=== PATIENT | female | born 1975 | race Caucasian/White ===

== ENCOUNTER → 2020-11-27 13:47 | Outpatient (BNVA) | payer BC, SELFPAY | PROVIDERS: Family Provider Internal Medicine; PCP Physician Assistant; Visit Provider Specialist | DX: G56.03 Carpal tunnel syndrome, bilateral upper limbs (principal) | CPT/HCPCS: 95910 ==

== ENCOUNTER 2021-07-30 13:48 | Outpatient (CLI) | payer BC, SELFPAY ==
--- NOTE | 2021-07-30 13:58 | CT_ITS ---
WS: [id number] CT ABDOMEN AND PELVIS WITH CONTRAST HISTORY: ACUTE RLQ PAIN TECHNIQUE: Imaging performed of the abdomen and pelvis with IV contrast. Single phase imaging of the abdomen. Coronal and sagittal reformats are submitted. All CT scans at [facility] use at [facility] one of these dose optimization techniques: automated exposure control; mA and/or kV adjustment per patient size (includes targeted exams where dose is matched to clinical indication); or iterative re construction. IV CONTRAST: Omnipaque 300; 95 mL IV. Oral contrast: No DLP: 1906.4 mGy.cm COMPARISON: None available. Lower thorax: Lung bases are clear. Heart is normal size. No hiatal hernia. Liver/biliary system: Normal size with no intrahepatic dilatation. Gallbladder: Normal. No gallstones or wall thickening. No pericholecystic fluid. Pancreas: Normal size pancreas and pancreatic duct. No adjacent inflammation. Spleen: Normal size spleen. No mass or infarct. Adrenal glands: Normal. Right kidney: Normal. Left kidney: Normal. Aorta: Normal. Lymphadenopathy: None. Free fluid: None. GI tract: Normal appendix. No GI tract obstruction. No mucosal thickening or inflammation. Abdominal wall: Unremarkable abdominal wall. No hernia. Pelvis: No free fluid. Uterus is normal size and anteverted. IUD device along the endometrial canal. There is a lobulated cyst associated with the LEFT ovary measuring 2.3 x 4.2 cm. This is either a sin gle cyst with septation or 2 adjacent cysts. Bones: Unremarkable. CT/CT abdomen pelvis w con* [id number] IMPRESSION: 1. Normal appendix. No appendicitis. 2. No renal obstruction or calcification. 3. LEFT ovarian cyst measures 2.3 x 4.2 cm.
[2021-07-30] MEDS: iohexol 300 mg/mL 100 mL Btl IV (14:28)
== END 2021-07-30 13:49 | disposition home or self-care (01) ==
LOC: RAD 13:53
PROVIDERS: PCP Physician Assistant; Visit Provider Physician Assistant
DX: R10.31 Right lower quadrant pain (principal); N83.202 Unspecified ovarian cyst, left side
CPT/HCPCS: 74177

== ENCOUNTER → 2022-10-16 11:00 | Outpatient (BNVA) | payer BC, SELFPAY | PROVIDERS: PCP Physician Assistant; Visit Provider Obstetrics & Gynecology | DX: Z01.419 Encounter for gynecological examination (general) (routine) without abnormal findings (principal) | CPT/HCPCS: 87624 ==

== ENCOUNTER 2022-10-28 09:46 | Outpatient (CLI) | payer BC, SELFPAY ==
--- NOTE | 2022-10-28 09:56 | MM_ITS ---
WS: [id number] BILATERAL SCREENING DIGITAL TOMOSYNTHESIS MAMMOGRAM WITH CAD HISTORY: Z12.39 - Encounter for other screening for malignant neoplasm... COMPARISON: 04/15/2018 Bilateral CC and MLO views with tomosynthesis and synthetic mammography submitted. Computer aided det ection analyzed. Breast composition: The breasts are heterogeneously dense, which may obscure small masses. No suspici ous masses, microcalcifications or architectural distortion. Biopsy clip in the central lateral RIGHT breast. MM/[place] [id number] IMPRESSION: BI-RADS: 2-Benign FOLLOW UP: 1 Year Follow-up
== END 2022-10-28 09:47 | disposition home or self-care (01) ==
LOC: RAD 09:51
PROVIDERS: PCP Physician Assistant; Visit Provider Obstetrics & Gynecology
DX: Z12.31 Encounter for screening mammogram for malignant neoplasm of breast (principal)
CPT/HCPCS: 77063; 77067

== ENCOUNTER 2022-11-14 16:19 | Emergency (ER) | payer BC, SELFPAY ==
--- NOTE | 2022-11-14 16:26 | XRR_ITS ---
PROCEDURE INFORMATION: Exam: XR Chest Exam date and time: 11/14/2022 4:55 PM Age: 47 years old Clinical indication: Pain; On breathing; Additional info: Chest pain TECHNIQUE: Imaging protocol: Radiologic exam of the chest. Views: 1 view. COMPARISON: CT abdomen pelvis w con* [id number] 07/30/2021 2:26 PM FINDINGS: Lungs: Unremarkable. No consolidation. Pleural spaces: Unremarkable. No pleural effusion. No pneumothorax. Heart/Mediastinum: Several prominent subcentimeter short axis inguinal lymph nodes bilaterally. Bones/joints: Unremarkable. Gastrointestinal tract: Constipation. Organs: Hepatic steatosis. Spleen borderline enlarged 13 cm. IUD in the uterine cavity. Other findings: Left ovary septated 4.4 cm cyst without surrounding inflammation, likely follicular in nature. XR/XR chest 1V portable [id number] IMPRESSION: 1. Negative for acute inflammatory process in the abdomen or pelvis. 2. Hepatic steatosis. 3. Spleen borderline enlarged 13 cm. 4. Constipation. 5. IUD in the uterine cavity. 6. Left ovary septated 4.4 cm cyst without surrounding inflammation, likely follicular in nature. 7. Several prominent subcentimeter short axis inguinal lymph nodes bilaterally.
--- NOTE | 2022-11-14 16:26 | ECG_ITS ---
[facility] Test Date: 2022-11-14 Pat Name: Della Grady Department: Room: Gender: Female Office Services Specialist: : 1975 Requested By: Pascual Austin Order Number: [id number] Mahendra MD: Davion Magdaleno M.D. Measurements Intervals Kelliher Rate: 76 P: 48 NM: 156 QRS: -6 QRSD: 85 T: 13 QT: 389 QTc: 439 Interpretive Statements SINUS RHYTHM LOW QRS VOLTAGE IN PRECORDIAL LEADS [QRS DEFLECTION < 1.0 mV IN CHEST LEADS] POSSIBLE RIGHT VENTRICULAR CONDUCTION DELAY [RSR (QR) IN V1/V2] No previous ECG available for comparison Electronically Signed On 11-14-2022 22:08:25 CDT by Davion Magdaleno M.D. [id number]
[2022-11-14 16:28] VITALS: BP 137/86; PULSE 81; RESP 16; TEMP 36.5; O2SAT 98
--- NOTE | 2022-11-14 16:34 | W.ED.ABDPA2 ---
Documented by User: Pascual Sorto DO 11/19/22 07:57 HPI - Abdominal Pain General: Chief Complaint: Abdominal Pain Stated Complaint: Chest Pains, pain when breathing Time Seen by Provider: 11/14/22 16:24 Source: patient Mode of arrival: ambulatory History of Present Illness: 47-year-old female with right upper quadrant pain. She reports nausea. Patient has severe pain radiating to her back and around her right flank. She has had previous episodes which are far less intense. She denies hematochezia melena hematemesis coffee-ground emesis denies dysuria urgency or frequency or hematuria. Does still have her gallbladder intact. MD elicited complaint: abdominal pain Pertinent past history: none Onset (ago): hour(s) Pain Consistency: constant Location: Epigastric and RUQ Severity: severe Quality: cramping Radiation: R flank and back Exacerbating factors: eating Relieving factors: nothing Associated Symptoms: Reports nausea; Denies anorexia, belching, bloating, change in bowel habits, change in stool character, chills, coffee ground emesis, constipation, GI cramping, diarrhea, dyspepsia, dysuria, excessive flatus, fever(s), heartburn, hematochezia, hematuria, hematemesis, fecal incontinence, loose stools, melena, poor appetite, syncope and vomiting Review of Systems Const: Denies: fever(s), chills, fatigue or malaise ENMT: Denies: throat pain, ear or mastoid pain, nasal discharge or nasal congestion Card: Denies: chest pain, palpitations, irregular heart rhythm, edema or syncope Resp: Denies: dyspnea, productive cough or non-productive cough GI: Reports: abdominal pain and nausea; Denies: vomiting, hematemesis, coffee ground emesis, heartburn, diarrhea, constipation, bloating, GI cramping, belching, excessive flatus, fecal incontinence, change in bowel habits, change in stool character, hematochezia or melena : Denies: dysuria, urinary frequency, urinary urgency or hematuria Skin/Breast: Denies: rash or pruritus PFSH ED PFSH: Medical History Encounter for management of intrauterine contraceptive device (IUD) Family History Unknown Cancer maternal aunt; breast cancer, living Patient denies a family hx of ovarian, uterine, pancreatic, colon or thyroid cancers. Denies family history of Diabetes Hypertension Stroke Physical Exam Const: GENERAL APPEARANCE: cooperative and comfortable ORIENTATION/CONSCIOUSNESS: Yes awake, Yes oriented to person, Yes oriented to place and Yes oriented to time HENMT: COMMON NORMALS: normocephalic, atraumatic and hearing grossly normal bilaterally HEAD & SCALP: normocephalic and atraumatic Resp: COMMON NORMALS: normal respiratory effort, No retractions, No use of accessory muscles and clear to auscultation bilaterally AUSCULTATION: clear to auscultation bilaterally Cardio: COMMON NORMALS: regular rate, regular rhythm and No murmurs present (Cardio) RATE: regular rate RHYTHM: regular rhythm GI: COMMON NORMALS: No hepatosplenomegaly present PALPATION: Yes Tenderness to palpation present (GI) Details: RUQ, No Guarding due to palpation present (GI) and Yes No hepatosplenomegaly present Extremity: COMMON NORMALS: normal to inspection, capillary refill normal, no clubbing, cyanosis or edema, no calf tenderness and no pedal edema Neuro: SENSORIUM/ORIENTATION: Yes oriented to person, Yes oriented to place and Yes oriented to time Skin: COMMON NORMALS: no rashes or lesions noted GENERAL SKIN EXAM: no rashes or lesions noted Course Vital Signs: Vital signs: Vital Signs Temperature 97.7 F 11/14/22 16:28 Pulse Rate 71 11/14/22 22:01 Respiratory Rate 16 11/14/22 22:01 Blood Pressure 135/93 11/14/22 20:01 Pulse Oximetry 99 11/14/22 22:01 Oxygen Delivery Me thod Room Air 11/14/22 16:28 MDM - Abdominal Pain Medical Decision Making Biliary colic with elevation of liver enzymes elevated T. bili elevated gallbladder ultrasound shows dilation of the common bile duct. MRCP pending care signed out to Dr. Tucker at change of shift. See final notes for diagnosis and disposition. 47-year-old female checked out to me at shift change by the previous physician. She has right upper quadrant pain that is now essentially resolved. Her white blood cell count was 14. Hemoglobin 14. Bilirubin is 2. Mild elevations in her liver enzymes only gallbladder ultrasound showed common bile duct dilatation that was mild requiring MRCP. MRCP shows cholelithiasis with no biliary ductal dilatation or stone. With resolution in her pain she will be allowed home. We will make a case management referral to surgery as this is her second attack of similar symptoms she knows to return if return of pain or worsening symptoms. Lab Data 11/14/22 16:46 11/14/22 16:46 Labs/Radiology: Radiology Impressions Chest X-Ray 11/14/22 16:26 IMPRESSION: 1. Negative for acute inflammatory process in the abdomen or pelvis. 2. Hepatic steatosis. 3. Spleen borderline enlarged 13 cm. 4. Constipation. 5. IUD in the uterine cavity. 6. Left ovary septated 4.4 cm cyst without surrounding inflammation, likely follicular in nature. 7. Several prominent subcentimeter short axis inguinal lymph nodes bilaterally. Gallbladder Ultrasound 11/14/22 17:31 IMPRESSION: 1. Common bile duct dilatation to approximately 7 mm. Correlate with LFTs and, if clinically indicated, ERCP or MRCP. 2. Cholelithiasis without sonographic evidence of acute cholecystitis. Cholangiopancreatography MRI 11/14/22 19:28 IMPRESSION: 1. Cholelithiasis. No biliary ductal dilatation or stone is seen. 2. Mild hepatomegaly and hepatic steatosis. Laboratory Results WBC 14.1 10^3/uL (4.0-10.0) H 11/14/22 16:46 RBC 4.59 10^6/uL (4.1-5.3) 11/14/22 16:46 Hgb 14.0 g/dL (11.5-15.3) 11/14/22 16:46 Hct 41.5 % (37.0-47.0) 11/14/22 16:46 MCV 90.4 fl (81-99) 11/14/22 16:46 MCH 30.5 pg (28.0-34.0) 11/14/22 16:46 MCHC 33.7 g/dL (30.0-36.0) 11/14/22 16:46 RDW 12.6 % (12.1-15.1) 11/14/22 16:46 Plt Count 261 10^3/cmm (130-400) 11/14/22 16:46 MPV 9.8 fL (7.4-10.4) 11/14/22 16:46 Neut % (Auto) 80.4 % 11/14/22 16:46 Lymph % (Auto) 13.4 % 11/14/22 16:46 [place] % (Auto) 4.3 % 11/14/22 16:46 Eos % (Auto) 0.9 % 11/14/22 16:46 Baso % (Auto) 0.6 % 11/14/22 16:46 Neut # (Auto) 11.31 10^3/uL (1.8-7.7) H 11/14/22 16:46 Lymph # (Auto) 1.9 10^3/uL (0.8-4.8) 11/14/22 16:46 [place] # (Auto) 0.6 10^3/uL (0.2-0.9) 11/14/22 16:46 Eos # (Auto) 0.1 10^3/uL (0.0-0.8) 11/14/22 16:46 Baso # (Auto) 0.1 10^3/uL (0.0-0.1) 11/14/22 16:46 Nucleated RBC % (auto) 0 % 11/14/22 16:46 Nucleated RBCs # 0.0 /100WBC 11/14/22 16:46 Sodium 138 mmol/L (136-145) 11/14/22 16:46 Potassium 3.6 mmol/L (3.5-5.1) 11/14/22 16:46 Chloride 103 mmol/L (98-107) 11/14/22 16:46 Carbon Dioxide 24 mmol/L (22-29) 11/14/22 16:46 Anion Gap 14.6 (5-19) 11/14/22 16:46 BUN 11 mg/dL (6-20) 11/14/22 16:46 Creatinine 0.7 mg/dL (0.5-0.9) 11/14/22 16:46 GFR Calculation 90.5 mL/min (90-130) 11/14/22 16:46 Glucose 96 mg/dL (65-115) 11/14/22 16:46 Calculated Osmolality 285 mOsm/kg (285-295) 11/14/22 16:46 Calcium 9.1 mg/dL (8.5-10.5) 11/14/22 16:46 Total Bilirubin 2.2 mg/dL (0.15-1.2) H 11/14/22 16:46 AST 58 U/L (0-32) H 11/14/22 16:46 ALT 44 U/L (0-33) H 11/14/22 16:46 Alkaline Phosphatase 95 U/L (35-105) 11/14/22 16:46 Total Protein 7.5 g/dL (6.6-8.7) 11/14/22 16:46 Albumin 4.4 g/dL (3.5-5.2) 11/14/22 16:46 Globulin 3.1 g/dL (1.3-4.6) 11/14/22 16:46 Lipase 25 U/L (13-60) 11/14/22 16:46 Urine Color Yellow (Yellow) 11/14/22 16:46 Urine Appearance Clear (CLEAR) 11/14/22 16:46 Urine pH 7 (5-7) 11/14/22 16:46 Ur Specific [place] 1.015 (1.005-1.030) 11/14/22 16:46 Urine Protein Neg (Negative) 11/14/22 16:46 Urine Glucose (UA) Norm (Normal) 11/14/22 16:46 Urine Ketones Negative (Negative) 11/14/22 16:46 Urine Blood Neg (Negative) 11/14/22 16:46 Urine Nitrate Negative (Negative) 11/14/22 16:46 Urine Bilirubin Neg (Negative) 11/14/22 16:46 Urine Urobilinogen Norm mg/dL (Negative) 11/14/22 16:46 Ur Leukocyte Esterase Negative (Negative) 11/14/22 16:46 Discharge Plan Discharge Patient Disposition: Home Clinical Impression: Biliary colic, Cholelithiasis Condition: Stable Prescriptions: New hydrocodone-acetaminophen 5-325 mg tablet 1 tab PO Q8H PRN (Reason: pain) Qty: 7 0RF ondansetron 4 mg film 4 mg PO DAILY PRN (Reason: nausea and vomiting) Qty: 10 0RF No Action levothyroxine 25 mcg tablet 25 mcg PO DAILY tirzepatide 5 mg/0.5 mL pen injector 5 mg SUBCUT .weekly Qty: 2 6RF Rx Instructions: ON THURSDAY famotidine 20 mg Tablet 20 mg PO DAILY PRN (Reason: Acid Reflux) Pepto-Bismol 262 mg/15 mL Suspension 524 mg PO Q1H PRN (Reason: Acid Reflux) Rx Instructions: do not exceed 8 doses in a 24 hour period Discharge Orders: Discharge ED (Routine); Ordered 11/14/22 Ordered By: Alphonso Tucker Referrals: Jd Prasad DO [Physician] - 4-7 days Emmie Rodas PA [Primary Care Provider] - Patient Instructions: Abdominal Pain (ED), Opioid Safety, Pain Management Activity Restrictions/Additional Instructions: Request from case management has been made to obtain an appointment with surgery for you for follow-up. Medications as directed for pain and nausea. Return for fever greater than 100, worsening right upper quadrant pain, vomiting liquids or medications, yellowing of the eyes, any other concerning symptoms. You should have your liver enzymes drawn early next week at your doctor's office to ensure that they are staying stable or returning to normal. Coding Level of Care Code ED Origination Specialist for Chg Fwd Documented by User: Alphonso Tucker DO 11/15/22 15:14 HPI - Abdominal Pain General: Chief Complaint: Abdominal Pain Stated Complaint: Chest Pains, pain when breathing Time Seen by Provider: 11/14/22 16:24 History of Present Illness: 47-year-old female with right upper quadrant pain. She reports nausea. Pain was severe. PFSH ED PFSH: Medical History Encounter for management of intrauterine contraceptive device (IUD) Family History Unknown Cancer maternal aunt; breast cancer, living Patient denies a family hx of ovarian, uterine, pancreatic, colon or thyroid cancers. Denies family history of Diabetes Hypertension Stroke Course Vital Signs: Vital signs: Vital Signs Temperature 97.7 F 11/14/22 16:28 Pulse Rate 71 11/14/22 22:01 Respiratory Rate 16 11/14/22 22:01 Blood Pressure 135/93 11/14/22 20:01 Pulse Oximetry 99 11/14/22 22:01 Oxygen Delivery Me thod Room Air 11/14/22 16:28 MDM - Abdominal Pain Medical Decision Making 47-year-old female checked out to me at shift change by the previous physician. She has right upper quadrant pain that is now essentially resolved. Her white blood cell count was 14. Hemoglobin 14. Bilirubin is 2. Mild elevations in her liver enzymes only gallbladder ultrasound showed common bile duct dilatation that was mild requiring MRCP. MRCP shows cholelithiasis with no biliary ductal dilatation or stone. With resolution in her pain she will be allowed home. We will make a case management referral to surgery as this is her second attack of similar symptoms she knows to return if return of pain or worsening symptoms. Lab Data 11/14/22 16:46 11/14/22 16:46 Labs/Radiology: Radiology Impressions Chest X-Ray 11/14/22 16:26 IMPRESSION: 1. Negative for acute inflammatory process in the abdomen or pelvis. 2. Hepatic steatosis. 3. Spleen borderline enlarged 13 cm. 4. Constipation. 5. IUD in the uterine cavity. 6. Left ovary septated 4.4 cm cyst without surrounding inflammation, likely follicular in nature. 7. Several prominent subcentimeter short axis inguinal lymph nodes bilaterally. Gallbladder Ultrasound 11/14/22 17:31 IMPRESSION: 1. Common bile duct dilatation to approximately 7 mm. Correlate with LFTs and, if clinically indicated, ERCP or MRCP. 2. Cholelithiasis without sonographic evidence of acute cholecystitis. Cholangiopancreatography MRI 11/14/22 19:28 IMPRESSION: 1. Cholelithiasis. No biliary ductal dilatation or stone is seen. 2. Mild hepatomegaly and hepatic steatosis. Laboratory Results WBC 14.1 10^3/uL (4.0-10.0) H 11/14/22 16:46 RBC 4.59 10^6/uL (4.1-5.3) 11/14/22 16:46 Hgb 14.0 g/dL (11.5-15.3) 11/14/22 16:46 Hct 41.5 % (37.0-47.0) 11/14/22 16:46 MCV 90.4 fl (81-99) 11/14/22 16:46 MCH 30.5 pg (28.0-34.0) 11/14/22 16:46 MCHC 33.7 g/dL (30.0-36.0) 11/14/22 16:46 RDW 12.6 % (12.1-15.1) 11/14/22 16:46 Plt Count 261 10^3/cmm (130-400) 11/14/22 16:46 MPV 9.8 fL (7.4-10.4) 11/14/22 16:46 Neut % (Auto) 80.4 % 11/14/22 16:46 Lymph % (Auto) 13.4 % 11/14/22 16:46 [place] % (Auto) 4.3 % 11/14/22 16:46 Eos % (Auto) 0.9 % 11/14/22 16:46 Baso % (Auto) 0.6 % 11/14/22 16:46 Neut # (Auto) 11.31 10^3/uL (1.8-7.7) H 11/14/22 16:46 Lymph # (Auto) 1.9 10^3/uL (0.8-4.8) 11/14/22 16:46 [place] # (Auto) 0.6 10^3/uL (0.2-0.9) 11/14/22 16:46 Eos # (Auto) 0.1 10^3/uL (0.0-0.8) 11/14/22 16:46 Baso # (Auto) 0.1 10^3/uL (0.0-0.1) 11/14/22 16:46 Nucleated RBC % (auto) 0 % 11/14/22 16:46 Nucleated RBCs # 0.0 /100WBC 11/14/22 16:46 Sodium 138 mmol/L (136-145) 11/14/22 16:46 Potassium 3.6 mmol/L (3.5-5.1) 11/14/22 16:46 Chloride 103 mmol/L (98-107) 11/14/22 16:46 Carbon Dioxide 24 mmol/L (22-29) 11/14/22 16:46 Anion Gap 14.6 (5-19) 11/14/22 16:46 BUN 11 mg/dL (6-20) 11/14/22 16:46 Creatinine 0.7 mg/dL (0.5-0.9) 11/14/22 16:46 GFR Calculation 90.5 mL/min (90-130) 11/14/22 16:46 Glucose 96 mg/dL (65-115) 11/14/22 16:46 Calculated Osmolality 285 mOsm/kg (285-295) 11/14/22 16:46 Calcium 9.1 mg/dL (8.5-10.5) 11/14/22 16:46 Total Bilirubin 2.2 mg/dL (0.15-1.2) H 11/14/22 16:46 AST 58 U/L (0-32) H 11/14/22 16:46 ALT 44 U/L (0-33) H 11/14/22 16:46 Alkaline Phosphatase 95 U/L (35-105) 11/14/22 16:46 Total Protein 7.5 g/dL (6.6-8.7) 11/14/22 16:46 Albumin 4.4 g/dL (3.5-5.2) 11/14/22 16:46 Globulin 3.1 g/dL (1.3-4.6) 11/14/22 16:46 Lipase 25 U/L (13-60) 11/14/22 16:46 Urine Color Yellow (Yellow) 11/14/22 16:46 Urine Appearance Clear (CLEAR) 11/14/22 16:46 Urine pH 7 (5-7) 11/14/22 16:46 Ur Specific [place] 1.015 (1.005-1.030) 11/14/22 16:46 Urine Protein Neg (Negative) 11/14/22 16:46 Urine Glucose (UA) Norm (Normal) 11/14/22 16:46 Urine Ketones Negative (Negative) 11/14/22 16:46 Urine Blood Neg (Negative) 11/14/22 16:46 Urine Nitrate Negative (Negative) 11/14/22 16:46 Urine Bilirubin Neg (Negative) 11/14/22 16:46 Urine Urobilinogen Norm mg/dL (Negative) 11/14/22 16:46 Ur Leukocyte Esterase Negative (Negative) 11/14/22 16:46 Discharge Plan Discharge Patient Disposition: Home Clinical Impression: Biliary colic, Cholelithiasis Condition: Stable Prescriptions: New hydrocodone-acetaminophen 5-325 mg tablet 1 tab PO Q8H PRN (Reason: pain) Qty: 7 0RF ondansetron 4 mg film 4 mg PO DAILY PRN (Reason: nausea and vomiting) Qty: 10 0RF No Action levothyroxine 25 mcg tablet 25 mcg PO DAILY tirzepatide 5 mg/0.5 mL pen injector 5 mg SUBCUT .weekly Qty: 2 6RF Rx Instructions: ON THURSDAY famotidine 20 mg Tablet 20 mg PO DAILY PRN (Reason: Acid Reflux) Pepto-Bismol 262 mg/15 mL Suspension 524 mg PO Q1H PRN (Reason: Acid Reflux) Rx Instructions: do not exceed 8 doses in a 24 hour period Discharge Orders: Discharge ED (Routine); Ordered 11/14/22 Ordered By: Alphonso Tucker Referrals: Jd Prasad DO [Physician] - 4-7 days Emmie Rodas PA [Primary Care Provider] - Patient Instructions: Abdominal Pain (ED), Opioid Safety, Pain Management Activity Restrictions/Additional Instructions: Request from case management has been made to obtain an appointment with surgery for you for follow-up. Medications as directed for pain and nausea. Return for fever greater than 100, worsening right upper quadrant pain, vomiting liquids or medications, yellowing of the eyes, any other concerning symptoms. You should have your liver enzymes drawn early next week at your doctor's office to ensure that they are staying stable or returning to normal. Coding Level of Care Code ED Origination Specialist for Rickey Garcia
--- NOTE | 2022-11-14 16:35 | PC.NURSE ---
pt reports epigastric pain radiating around her right side to her back. other symptoms include nausea, diarrhea, and cold/hot chills.
[2022-11-14 16:55] LABS: Basophils # 0.1 10^3/uL (0.0-0.1); Basophils % 0.6 %; Eosinophils # 0.1 10^3/uL (0.0-0.8); Eosinophils % 0.9 %; Hematocrit 41.5 % (37.0-47.0); Lymphocytes # 1.9 10^3/uL (0.8-4.8); Lymphocytes % 13.4 %; Mean Corpuscular HGB Conc 33.7 g/dL (30.0-36.0); Mean Corpuscular Hemoglobin 30.5 pg (28.0-34.0); Mean Corpuscular Volume 90.4 fl (81-99); Mean Platelet Volume 9.8 fL (7.4-10.4); Monocytes # 0.6 10^3/uL (0.2-0.9); Monocytes % 4.3 %; Neutrophils # 11.31 10^3/uL (1.8-7.7); Neutrophils % 80.4 %; Nucleated Red Blood Cells % 0 %; Platelet Count 261 10^3/cmm (130-400); Red Blood Count 4.59 10^6/uL (4.1-5.3); Red Cell Distribution Width 12.6 % (12.1-15.1); White Blood Count 14.1 10^3/uL (4.0-10.0)
[2022-11-14] MEDS: ondansetron 2 mg/ML SDV 2 mL 4 MG IVP (17:04)
[2022-11-14 17:08] VITALS: RESP 20; O2SAT 100
[2022-11-14] MEDS: morphine 4 mg/mL SDV 1 mL 8 MG IVP (17:08)
[2022-11-14 17:17] LABS: Alanine Aminotransferase 44 U/L (0-33); Albumin Level 4.4 g/dL (3.5-5.2); Alkaline Phosphatase 95 U/L (35-105); Anion Gap 14.6 (5-19); Aspartate Amino Transferase 58 U/L (0-32); Blood Urea Nitrogen 11 mg/dL (6-20); Calcium 9.1 mg/dL (8.5-10.5); Carbon Dioxide 24 mmol/L (22-29); Chloride 103 mmol/L (98-107); Creatinine Clr Calc Pharmacy 133.8726; Globulin 3.1 g/dL (1.3-4.6); Glomerular Filtration Rate 90.5 mL/min (90-130); Glucose 96 mg/dL (65-115); Lipase 25 U/L (13-60); Osmolality Calculated 285 mOsm/kg (285-295); Potassium 3.6 mmol/L (3.5-5.1); Sodium 138 mmol/L (136-145); Total Bilirubin 2.2 mg/dL (0.15-1.2); Total Protein 7.5 g/dL (6.6-8.7)
--- NOTE | 2022-11-14 17:31 | USR_ITS ---
PROCEDURE INFORMATION: Exam: US Abdomen, Limited; Right Upper Quadrant Exam date and time: 11/14/2022 5:42 PM Age: 47 years old Clinical indication: Abdominal pain; Epigastric; Additional info: Ruq pain TECHNIQUE: Imaging protocol: Real time ultrasound of the abdomen with image documentation. Limited exam focused on the right upper quadrant. COMPARISON: CT abdomen pelvis w con* [id number] 07/30/2021 2:26 PM FINDINGS: Liver: Unremarkable. Gallbladder: Small amount of dependent sludge and/or small stones. No gallbladder wall thickening or pericholecystic fluid. Negative sonographic Mahmood's sign, as per the performing site supervisor. Biliary ducts: Dilated to approximately 7 mm. No stones. Pancreas: Unremarkable as visualized. Right kidney: No mass. No definite stones. No hydronephrosis. US/US gall bladder [id number] IMPRESSION: 1. Common bile duct dilatation to approximately 7 mm. Correlate with LFTs and, if clinically indicated, ERCP or MRCP. 2. Cholelithiasis without sonographic evidence of acute cholecystitis.
[2022-11-14 18:56] LABS: Add Urine Microscopic? NO; Charge for UA Resulting for Rev
[2022-11-14 19:01] VITALS: BP 118/77; PULSE 77; RESP 16; O2SAT 97
--- NOTE | 2022-11-14 19:11 | PC.NURSE ---
report given to NILTON Amador to assume care
[2022-11-14 19:12] LABS: Urine Appearance Clear (CLEAR); Urine Color Yellow (Yellow)
[2022-11-14 19:13] LABS: Bilirubin Urine Neg (Negative); Blood Urine Neg (Negative); Glucose Urine UA Norm (Normal); Ketones Urine Negative (Negative); Leukocyte Esterase Urine Negative (Negative); Nitrate Urine Negative (Negative); Protein Urine Neg (Negative); Specific Gravity, Urine 1.015 (1.005-1.030); Urobilinogen Urine Norm (Negative); pH Urine 7 (5-7)
--- NOTE | 2022-11-14 19:28 | MRR_ITS ---
PROCEDURE INFORMATION: Exam: MR Abdomen Without Contrast Exam date and time: 11/14/2022 8:39 PM Age: 47 years old Clinical indication: Abdominal pain; Localized; Right upper quadrant (ruq); Patient HX: Ruq pain starting today, no n/v; Additional info: Cbd dilated. Ruq pain. Hyperbilirubinemia TECHNIQUE: Imaging protocol: Magnetic resonance imaging of the abdomen without contrast. COMPARISON: CT abdomen pelvis w con* [id number] 07/30/2021 2:26 PM FINDINGS: Liver: The liver is mildly enlarged and demonstrates mild fatty infiltration changes. No parenchymal lesion is seen. Gallbladder and bile ducts: A few small gallstones are again seen in the gallbladder. No gallbladder wall thickening or pericholecystic fluid. No biliary ductal dilatation. No ductal stone is seen. Pancreas: Unremarkable. No ductal dilation. Spleen: Unremarkable. No splenomegaly. Adrenal glands: Unremarkable. No mass. Kidneys and ureters: Unremarkable. No solid mass. No hydronephrosis. Stomach and bowel: Visualized stomach and intestines are unremarkable. Intraperitoneal space: No free fluid. Vasculature: No abdominal aortic aneurysm. Bones/joints: Unremarkable. Soft tissues: Unremarkable. MR/MR MRCP [id number] IMPRESSION: 1. Cholelithiasis. No biliary ductal dilatation or stone is seen. 2. Mild hepatomegaly and hepatic steatosis.
[2022-11-14 20:01] VITALS: BP 135/93; PULSE 73; RESP 16; O2SAT 97
[2022-11-14 22:01] VITALS: PULSE 71; RESP 16; O2SAT 99
--- NOTE | 2022-11-17 10:50 | DCPLANNER ---
Addendum entered by Ebony Quesada 12/22/22 11:27: Patient had a follow up appointment at general surgery - patient did not attend appointment. Addendum entered by Ebony Quesada 11/21/22 09:39: Patient has a follow up appointment scheduled for Friday, December 16, 2022 at 9:[address] Prasad at general surgery. Original Note: inside sales account manager had message to schedule a follow up appointment for patient with general surgery. inside sales account manager sent patients information to the front office staff at general surgery. Patients information will be printed and reviewed. Clinic will call patient with appointment information.
== END 2022-11-14 22:31 | disposition home or self-care (01) ==
PROVIDERS: Family Medicine; Emergency Provider Emergency Medicine; PCP Physician Assistant
DX: K80.20 Calculus of gallbladder without cholecystitis without obstruction (principal)
CPT/HCPCS: 71045; 74181; 76705; 80053; 81003; 83690; 85025; 93005; 96374; 96375; 99285; J2270; J2405

== ENCOUNTER → 2022-12-31 10:14 | Outpatient (BNVA) | payer BC, SELFPAY | PROVIDERS: PCP Physician Assistant; Visit Provider Obstetrics & Gynecology | DX: Z30.431 Encounter for routine checking of intrauterine contraceptive device (principal) | CPT/HCPCS: 76830 ==

== ENCOUNTER 2023-11-18 20:03 | Observation (INO) | payer BC, SELFPAY ==
[2023-11-18 20:06] VITALS: BP 127/79; PULSE 116; RESP 18; TEMP 36.9; O2SAT 100
--- NOTE | 2023-11-18 20:14 | CTR_ITS ---
PROCEDURE INFORMATION: Exam: CT Abdomen And Pelvis With Contrast Exam date and time: 11/18/2023 8:55 PM Age: 48 years old Clinical indication: Abdominal pain; Localized; Right lower quadrant (rlq); Additional info: Rlq abd pain TECHNIQUE: Imaging protocol: Computed tomography of the abdomen and pelvis with contrast. Radiation optimization: All CT scans at this facility use at least one of these dose optimization techniques: automated exposure control; mA and/or kV adjustment per patient size (includes targeted exams where dose is matched to clinical indication); or iterative reconstruction. Contrast material: OMNI 350; Contrast volume: 100 ml; Contrast route: INTRAVENOUS (IV); COMPARISON: 1. MR MRCP [id number] 11/14/2022 8:[address] abdomen pelvis w con* [id number] 07/30/2021 2:26 PM RADIATION DOSE METRICS: Total DLP (mGy-cm): 793.6 FINDINGS: Lungs: Lung bases are clear. Liver: There is no focal abnormality within the liver. Gallbladder and bile ducts: There are few tiny hypodensities within the gallbladder consistent with small noncalcified stones. There is no gallbladder wall thickening or pericholecystic fluid. There is no common bile duct dilation. Pancreas: The pancreas is normal. Spleen: The spleen is normal. Adrenal glands: The adrenal glands are normal. Kidneys and ureters: The kidneys are normal. There is no evidence of hydronephrosis. There is no evidence of renal or ureteral calcifications. Stomach and bowel: There is no evidence of intestinal obstruction. Appendix: The appendix is abnormal. Appendix is distended with outer diameter of 9-10 mm with thickened enhancing wall and periappendiceal inflammatory stranding consistent with acute appendicitis. No periappendiceal abscess is identified. Intraperitoneal space: There is minimal free fluid in the posterior cul-de-sac within physiologic limits. Vasculature: The aorta is normal. Lymph nodes: There are few mildly prominent lymph nodes in the right lower quadrant mesentery. Urinary bladder: Unremarkable as visualized. Reproductive: There is a T-shaped IUD within the uterus. There is a 2.8 cm sized left adnexal cyst. Bones/joints: Unremarkable. No acute fracture. Soft tissues: Unremarkable. CT/CT abdomen pelvis w con* [id number] IMPRESSION: 1. Acute appendicitis 2. Cholelithiasis
--- NOTE | 2023-11-18 20:15 | ED_ITS ---
HPI - Abdominal Pain 2 General: Chief Complaint: Abdominal Pain Stated Complaint: lower R abd pain was whole abd fever Time Seen by Provider: 11/18/23 20:13 History of Present Illness: 48-year-old female presents emergency de partment with complaints of right lower quadrant abdominal pain. She states her pain started last night and was a all over generalized pain that she discounted and then it became worse throughout the day today. She states it is moved down to her right lower quadrant. She states she also checked her temperature earlier and it was 102.7 ?F. She states she did take some ibuprofen and her fever went away but she continues to have a dull 6 out of 10 abdominal pain that is worse with any sort of palpation of the area. Associated Symptoms: Reports fever(s) and nausea Review of Systems 2 General: Reports: 10 or more systems reviewed and unremarkable except in HPI and below Const: Reports: fever(s) GI: Reports: abdominal pain and nausea PFSH ED 2 PFSH: Medical History Encounter for management of intrauterine contraceptive device (IUD) Family History Unknown Cancer maternal aunt; breast cancer, living Patient denies a family hx of ovarian, uterine, pancreatic, colon or thyroid cancers. Denies family history of Diabetes Hypertension Stroke Physical Exam 2 Narrative: EXAM NARRATIVE: Constitutional: the patient appears well nourished and of normal development. Vital signs as documented. No acute distress at present. Alert and oriented-to person, place, time and situation. Head, eyes, ears, nose, mouth, throat: Normocephalic, atraumatic. Pupils-equal, round, reactive to light. No scleral icterus. Normal-appearing external ears. Normal appearing nasal turbinates, no drainage. No obvious oral lesions, posterior oropharynx without erythema or exudates. Neck: Supple, trachea is midline, no lymphadenopathy, no jugular venous distension, thyromegaly, or carotid bruits. Carotid upstrokes are brisk bilaterally. Lungs: clear to auscultation to all lung higgins. Symmetrical rise and fall of chest, no obvious signs of increased work of breathing at present. Cardiac: Regular rate and rhythm, positive S1, S2. No murmurs, rubs or gallops that I can appreciate Abdomen: Soft, right lower quadrant tender to palpation, normal active bowel sounds to all quadrants. No palpable masses, no organomegaly and abdominal bruits. Extremities: 2+ pulses in the upper extremities that are equal bilaterally, 2+ pulses in the lower extremities that are equal bilaterally. Non-edematous. Moves all extremities well, sensation to all extremities are noted. Skin: Warm, dry, intact. Course 2 Vital Signs: Vital signs: Vital Signs Temperature 98.5 F 11/18/23 20:06 Pulse Rate 116 H 11/18/23 20:06 Respiratory Rate 18 11/18/23 20:06 Blood Pressure 127/79 11/18/23 20:06 Pulse Oximetry 100 11/18/23 20:06 Oxygen Delivery Me thod Room Air 11/18/23 20:06 MDM - Abdominal Pain Medical Decision Making Physical exam completed and documented, I will obtain laboratory evaluation to include a CBC, CMP, lipase, urinalysis, and a CT scan of the patient's abdomen pelvis to evaluate for possible differential diagnosis of bowel obstruction, incarcerated hernia, abdominal wall strain, abdominal wall hematoma, constipation, colitis, acute appendicitis, diverticulitis. I contacted the general surgeon to discuss the patient's CT scan findings of acute appendicitis and have provided her pain medication as well as IV antibiotics and general surgeon has accepted the patient for admission and possible surgical intervention tomorrow. Medical Records I reviewed the patient's medical records. Lab Data I reviewed the patient's lab results. 11/18/23 20:32 11/18/23 20:32 Labs/Radiology: Radiology Impressions Abdomen/Pelvis CT 11/18/23 20:14 IMPRESSION: 1. Acute appendicitis 2. Cholelithiasis ADDENDUM: 11/18/232139 Addendum: THIS REPORT CONTAINS FINDINGS THAT MAY BE CRITICAL TO PATIENT CARE. The findings were verbally communicated via telephone conference with ANA JADE at 9:38 PM CDT on 11/18/2023. The findings were acknowledged and understood. Laboratory Results WBC 13.09 10^3/uL (3.29-11.43) H 11/18/23 20:32 RBC 4.43 10^6/uL (3.85-5.65) 11/18/23 20:32 Hgb 14.10 g/dL (11.27-16.99) 11/18/23 20:32 Hct 40.1 % (36-47) 11/18/23 20:32 MCV 90.5 fl (85-98) 11/18/23 20:32 MCH 31.8 pg (27-33) 11/18/23 20:32 MCHC 35.2 g/dL (30-55) 11/18/23 20:32 RDW 12.4 % (12.1-15.1) 11/18/23 20:32 Plt Count 202 10^3/cmm (157-399) 11/18/23 20:32 MPV 9.7 fL (7.4-10.4) 11/18/23 20:32 Neut % (Auto) 82.6 % 11/18/23 20:32 Lymph % (Auto) 11.1 % 11/18/23 20:32 [place] % (Auto) 4.4 % 11/18/23 20:32 Eos % (Auto) 1.1 % 11/18/23 20:32 Baso % (Auto) 0.4 % 11/18/23 20:32 Neut # (Auto) 10.82 10^3/uL (1.8-7.7) H 11/18/23 20:32 Lymph # (Auto) 1.5 10^3/uL (0.8-4.8) 11/18/23 20:32 [place] # (Auto) 0.6 10^3/uL (0.2-0.9) 11/18/23 20:32 Eos # (Auto) 0.1 10^3/uL (0.0-0.8) 11/18/23 20:32 Baso # (Auto) 0.1 10^3/uL (0.0-0.1) 11/18/23 20:32 Nucleated RBC % (auto) 0 % 11/18/23 20: Nucleated RBCs # 0.0 /100WBC 11/18/23 20:32 Sodium 138 mmol/L (136-145) 11/18/23 20:32 Potassium 3.8 mmol/L (3.5-5.1) 11/18/23 20:32 Chloride 104 mmol/L (98-107) 11/18/23 20:32 Carbon Dioxide 23 mmol/L (22-29) 11/18/23 20:32 Anion Gap 14.8 (5-19) 11/18/23 20:32 BUN 12 mg/dL (6-20) 11/18/23 20:32 Creatinine 0.9 mg/dL (0.5-0.9) 11/18/23 20:32 GFR Calculation 67.4 mL/min (90-130) L 11/18/23 20:32 Glucose 95 mg/dL (65-115) 11/18/23 20:32 Calculated Osmolality 286 mOsm/kg (285-295) 11/18/23 20:32 Calcium 9.0 mg/dL (8.5-10.5) 11/18/23 20:32 Total Bilirubin 1.8 mg/dL (0.15-1.2) H 11/18/23 20:32 AST 15 U/L (0-32) 11/18/23 20:32 ALT 13 U/L (0-33) 11/18/23 20:32 Alkaline Phosphatase 60 U/L (35-105) 11/18/23 20:32 Total Protein 7.1 g/dL (6.6-8.7) 11/18/23 20:32 Albumin 4.1 g/dL (3.5-5.2) 11/18/23 20: Globulin 3.0 g/dL (1.3-4.6) 11/18/23 20:32 Lipase 14 U/L (13-60) 11/18/23 20:32 HCG, Qual Negative (Negative) 11/18/23 20:32 Urine Color Colorless (Yellow) 11/18/23 20:32 Urine Appearance Clear (CLEAR) 11/18/23 20:32 Urine pH 8 (5-7) H 11/18/23 20:32 Ur Specific [place] 1.010 (1.005-1.030) 11/18/23 20:32 Urine Protein Neg (Negative) 11/18/23 20:32 Urine Glucose (UA) Norm (Normal) 11/18/23 20:32 Urine Ketones Negative (Negative) 11/18/23 20:32 Urine Blood Neg (Negative) 11/18/23 20:32 Urine Nitrate Negative (Negative) 11/18/23 20:32 Urine Bilirubin Neg (Negative) 11/18/23 20:32 Prot Sulfosalicylic Acd Negative (Negative) 11/18/23 20:32 Urine Urobilinogen Neg mg/dL (Negative) 11/18/23 20:32 Ur Leukocyte Esterase Negative (Negative) 11/18/23 20:32 All radiology interpretation(s) finalized by discharge Discharge Plan Discharge Patient Disposition: Placed in Observation Clinical Impression: Acute appendicitis, Abdominal pain Condition: Stable Prescriptions: No Action levothyroxine 25 mcg tablet 25 mcg PO DAILY tirzepatide 5 mg/0.5 mL pen injector 5 mg SUBCUT .weekly Qty: 2 6RF Rx Instructions: ON THURSDAY famotidine 20 mg Tablet 20 mg PO DAILY PRN (Reason: Acid Reflux) Pepto-Bismol 262 mg/15 mL Suspension 524 mg PO Q1H PRN (Reason: Acid Reflux) Rx Instructions: do not exceed 8 doses in a 24 hour period hydrocodone-acetaminophen 5-325 mg tablet 1 tab PO Q8H PRN (Reason: pain) Qty: 7 0RF ondansetron 4 mg film 4 mg PO DAILY PRN (Reason: nausea and vomiting) Qty: 10 0RF Referrals: mEmie Rodas PA [Primary Care Provider] - Coding Level of Care Code ED Compliance Paralegal for Rickey Garcia
[2023-11-18 20:39] LABS: Basophils # 0.1 10^3/uL (0.0-0.1); Basophils % 0.4 %; Eosinophils # 0.1 10^3/uL (0.0-0.8); Eosinophils % 1.1 %; Hematocrit 40.1 % (36-47); Lymphocytes # 1.5 10^3/uL (0.8-4.8); Lymphocytes % 11.1 %; Mean Corpuscular HGB Conc 35.2 g/dL (30-55); Mean Corpuscular Hemoglobin 31.8 pg (27-33); Mean Corpuscular Volume 90.5 fl (85-98); Mean Platelet Volume 9.7 fL (7.4-10.4); Monocytes # 0.6 10^3/uL (0.2-0.9); Monocytes % 4.4 %; Neutrophils # 10.82 10^3/uL (1.8-7.7); Neutrophils % 82.6 %; Nucleated Red Blood Cells % 0 %; Platelet Count 202 10^3/cmm (157-399); Red Blood Count 4.43 10^6/uL (3.85-5.65); Red Cell Distribution Width 12.4 % (12.1-15.1); White Blood Count 13.09 10^3/uL (3.29-11.43)
[2023-11-18 20:43] LABS: Add Urine Microscopic? NO; Charge for UA Resulting for Rev
[2023-11-18 20:44] LABS: HCG Qualitative Urine. Negative (Negative)
[2023-11-18 20:45] LABS: Bilirubin Urine Neg (Negative); Blood Urine Neg (Negative); Glucose Urine UA Norm (Normal); Ketones Urine Negative (Negative); Leukocyte Esterase Urine Negative (Negative); Nitrate Urine Negative (Negative); Protein Urine Neg (Negative); Sulfosalicylic Acid Urine Negative (Negative); Urine Appearance Clear (CLEAR); Urine Color Colorless (Yellow); Urobilinogen Urine Neg (Negative); pH Urine 8 (5-7)
[2023-11-18] MEDS: iohexol 350 mg/mL 500 mL Btl (per mL) IV (20:56)
[2023-11-18 20:57] LABS: Alanine Aminotransferase 13 U/L (0-33); Albumin Level 4.1 g/dL (3.5-5.2); Alkaline Phosphatase 60 U/L (35-105); Anion Gap 14.8 (5-19); Aspartate Amino Transferase 15 U/L (0-32); Blood Urea Nitrogen 12 mg/dL (6-20); Carbon Dioxide 23 mmol/L (22-29); Chloride 104 mmol/L (98-107); Creatinine Clr Calc Pharmacy 98.1932; Glomerular Filtration Rate 67.4 mL/min (90-130); Glucose 95 mg/dL (65-115); Lipase 14 U/L (13-60); Osmolality Calculated 286 mOsm/kg (285-295); Potassium 3.8 mmol/L (3.5-5.1); Sodium 138 mmol/L (136-145); Total Bilirubin 1.8 mg/dL (0.15-1.2); Total Protein 7.1 g/dL (6.6-8.7)
[2023-11-18] MEDS: ketorolac 30 mg/mL INJ IVP (22:15)
[2023-11-18] MEDS: piperacillin-tazobactam 3.375 GM in sodium chloride 0.9% (plus) 50 ML IV (22:15)
[2023-11-18 22:28] VITALS: BP 106/72; PULSE 99; O2SAT 95
[2023-11-18] MEDS: lactated ringers 1,000 ML 100 ML IV (22:36)
--- NOTE | 2023-11-18 22:46 | PC.NURSE ---
Report was called to [facility] on Med-Surg. All questions and concerns were addressed at time of report.
[2023-11-18 23:15] VITALS: BP 98/51; PULSE 96; RESP 20; TEMP 36.9; O2SAT 96
--- NOTE | 2023-11-18 23:25 | PC.NURSE ---
Patient currently rates pain 3/10. Patient states this is a tolerable pain level for her. Patient educated to notify nurse if pain levels rises. Patient also educated on PRN pain medication.
[2023-11-19] VITALS (23 sets, daily range): BP systolic 98–138; BP diastolic 58–80; PULSE 78–99; RESP 12–20; TEMP 36.2–36.8; O2SAT 90–99
[2023-11-19] MEDS: morphine 4 mg/mL SDV 1 mL IVP (01:19)
[2023-11-19 04:21] LABS: Basophils % 0.4 %; Eosinophils # 0.2 10^3/uL (0.0-0.8); Eosinophils % 2.5 %; Hematocrit 36.5 % (36-47); Lymphocytes % 21.8 %; Mean Corpuscular HGB Conc 34.2 g/dL (30-55); Mean Corpuscular Hemoglobin 31.6 pg (27-33); Mean Corpuscular Volume 92.2 fl (85-98); Monocytes # 0.4 10^3/uL (0.2-0.9); Monocytes % 4.8 %; Neutrophils # 6.29 10^3/uL (1.8-7.7); Neutrophils % 70.2 %; Nucleated Red Blood Cells % 0 %; Platelet Count 165 10^3/cmm (157-399); Red Blood Count 3.96 10^6/uL (3.85-5.65); Red Cell Distribution Width 12.5 % (12.1-15.1); White Blood Count 8.96 10^3/uL (3.29-11.43)
[2023-11-19 04:30] LABS: Partial Thromboplastin Time 32.4 SECONDS (23.9-36.7)
[2023-11-19 04:44] LABS: Anion Gap 12.6 (5-19); Blood Urea Nitrogen 14 mg/dL (6-20); Calcium 8.3 mg/dL (8.5-10.5); Carbon Dioxide 24 mmol/L (22-29); Chloride 105 mmol/L (98-107); Creatinine Clr Calc Pharmacy 98.1488; Glomerular Filtration Rate 67.4 mL/min (90-130); Glucose 78 mg/dL (65-115); Osmolality Calculated 285 mOsm/kg (285-295); Potassium 3.6 mmol/L (3.5-5.1); Sodium 138 mmol/L (136-145)
[2023-11-19] MEDS: ketorolac 30 mg/mL INJ 15 MG IVP ×2 (06:27→15:44)
[2023-11-19] MEDS: piperacillin-tazobactam 3.375 GM in sodium chloride 0.9% (plus) 50 ML IV (06:27)
--- NOTE | 2023-11-19 07:01 | P.HP_ITS ---
Providers/Chief Complaint 2 Admitting Physician: Rian Arias MD Primary Care Provider: Emmie Rodas Chief Complaint: lower R abd pain was whole abd fever History of Present Illness Della Grady is a 48 year old female who presents to the emergency department complaining of 24 hours of abdominal pain initially diffuse and then localized to the right lower quadrant, pain was associated with fever and tachycardia according to the patient. In the emergency department a CT scan was done which show evidence of acute appendicitis without significant findings concerning for rupture. Review of Systems 2 General: Reports: 10 or more systems reviewed and unremarkable except in HPI and below Medications/Allergies Home Medications Medication Instructions Recorded Confirmed Last Taken Type levothyroxine 25 mcg tablet 25 mcg PO DAILY 07/09/22 11/18/23 11/18/23 History multivitamin 1 tab PO DAILY 11/18/23 11/18/23 11/18/23 History Allergies Allergy/AdvReac Type Severity Reaction Status Date / Time pure maple Allergy ADR-Heartbu Uncoded 11/18/23 23:11 rn PFSH Acute 2 PFSH: Medical History Encounter for management of intrauterine contraceptive device (IUD) Family History Unknown Cancer maternal aunt; breast cancer, living Patient denies a family hx of ovarian, uterine, pancreatic, colon or thyroid cancers. Denies family history of Diabetes Hypertension Stroke Vitals/I&O/Wt Last Vital Signs Temp 97.6 F 11/19/23 04:00 Pulse 88 11/19/23 04:00 Resp 18 11/19/23 04:00 BP 98/65 11/19/23 04:00 Pulse Ox 97 11/19/23 04:00 O2 Del Method Room Air 11/19/23 04:00 11/18/23 11/19/23 11/19/23 22:59 06:59 14:59 Intake Total 50 / 50 Balance 50 / 50 Weight last 48 hrs Weight 221 lb 4 oz Weight 219 lb 12.8 oz Weight 220 lb Physical Exam 2 Narrative: General : Patient is well developed , no acute distress, oriented x3 Head : Normal cephalic, a-traumatic. Nose : Mucous membranes are without erythema. Lungs : Equal chest rise bilaterally, no use of accessory muscles, trachea is midline. CV : Rate and rhythm are normal. Abdomen : Soft, moderate tenderness in the right lower quadrant. No rebound signs Extremities : No edema. Upper extremities are normal bilaterally. Back : non-tender to palpation, no CVA tenderness. Data 11/19/23 04:11 11/19/23 04:11 A&P Assessment and plan (1) Acute appendicitis: Qualifiers: Acute appendicitis type: with localized peritonitis Appendicitis abscess presence: without abscess Appendicitis gangrene presence: without gangrene Appendicitis perforation presence: without perforation Qualified Code(s): K35.30 - Acute appendicitis with localized peritonitis, without perforation or gangrene Plan After complete history, physical examination and review of all available clinical data the following is my assessment. Patient has a clinical picture consistent with acute appendicitis that is also verified by imaging and laboratory workup. I have offered her a laparoscopic possible open appendectomy, I have discussed the risks of the procedure including but not limited to bleeding, infection, deep tissue infection, abscess formation requiring drainage, need for additional procedures, damage to surrounding structures including the small bowel colon and ureter, hernia formation, fistula formation. Patient shows understanding wishes to proceed. Procedure will be done today and patient will likely be discharged home after surgery. Attestations 2 Medical Necessity Statement*: 4 OR today, possible discharge after breann freddy. Coding Level of Care Code Acute Code for [facility] Diagnoses Acute appendicitis K35.30 Acute appendicitis type: with localized peritonitis Appendicitis abscess presence: without abscess Appendicitis gangrene presence: without gangrene Appendicitis perforation presence: without perforation
[2023-11-19] MEDS: lactated ringers 1,000 ML 100 ML IV (09:33)
--- NOTE | 2023-11-19 10:57 | ANES.PREANE2 ---
Pre-Anesthetic Assessment Height/Weight: Height 1.75 m Weight 100.357 kg Temp Pulse Resp BP Pulse Ox O2 Del Method 97.8 F 84 16 108/75 97 Room Air 11/19/23 08:00 11/19/23 08:00 11/19/23 08:00 11/19/23 08:00 11/19/23 08:00 11/19/23 04:00 Operation Date: 11/19/23 12:00 Proposed Procedures p Laparoscopic Appendectomy(Not Applicable) - Rian Arias MD Familial anesthetic complications: None Was Beta Diana taken within 24 hours: N/A Was Clonidine taken within 24 hours: N/A Last intake: Intake Last Liquid Date 11/18/23 Last Liquid Time 23:45 Last Solid Date 11/18/23 Last Solid Time 17:00 Social Tobacco (vapes) and No alcohol Exam alert, oriented x 3, clear to auscultation bilaterally and regular rate & rhythm Airway Mallampati: Class I Dentition: false Metabolic Thyroid Disease Anesthetic Plan ASA status: 2 Anesthesia: General Risk of > 500 ml blood loss (7ml/kg in children): No Medications/Allergies Home Medications Medication Instructions Recorded Confirmed Last Taken Type levothyroxine 25 mcg tablet 25 mcg PO DAILY 07/09/22 11/18/23 11/18/23 History multivitamin 1 tab PO DAILY 11/18/23 11/18/23 11/18/23 History Allergies Allergy/AdvReac Type Severity Reaction Status Date / Time pure maple Allergy ADR-Heartbu Uncoded 11/18/23 23:11 rn Current Medications Generic Name Dose Route Start Last Admin Trade Name Kamleshq PRN Reason Stop Dose Admin Lactated Ringer's 1,000 mls @ 100 mls/hr 11/18/23 21:45 11/19/23 09:33 Lactated Ringers IV 100 mls/hr .Q10H CASSANDRA Administration Piperacillin Sod/Tazobactam 50 mls @ 12.5 mls/hr 11/19/23 05:45 11/19/23 06:27 Sod 3.375 gm/ Sodium Chloride IV 12.5 mls/hr Q8H CASSANDRA Administration Protocol Ketorolac Tromethamine 15 mg 11/19/23 05:45 11/19/23 06:27 Ketorolac 30 Mg/Ml Inj IVP 11/24/23 05:44 15 mg Q6H CASSANDRA Administration Morphine Sulfate 4 mg 11/18/23 21:38 11/19/23 01:19 Morphine 4 Mg/Ml Sdv 1 Ml IVP 4 mg Q4H PRN Administration SEVERE PAIN PFSH Anesthesia Medical History Encounter for management of intrauterine contraceptive device (IUD) Family History Unknown Cancer maternal aunt; breast cancer, living Patient denies a family hx of ovarian, uterine, pancreatic, colon or thyroid cancers. Denies family history of Diabetes Hypertension Stroke Data Anesthesia 11/19/23 04:11 11/19/23 04:11 Short CBC 11/18/23 11/19/23 Range/Units 20:32 04:11 WBC 13.09 H 8.96 (3.29-11.43) 10^3/uL Hgb 14.10 12.50 (11.27-16.99) g/dL Hct 40.1 36.5 (36-47) % MCV 90.5 92.2 (85-98) fl Plt Count 202 165 (157-399) 10^3/cmm Neut % (Auto) 82.6 70.2 % Neut # (Auto) 10.82 H 6.29 (1.8-7.7) 10^3/uL BMP 11/18/23 11/19/23 20:32 04:11 Sodium 138 138 Potassium 3.8 3.6 Chloride 104 105 Carbon Dioxide 23 24 BUN 12 14 Creatinine 0.9 0.9 Glucose 95 78 Calcium 9.0 8.3 L Liver Function 11/18/23 Range/Units 20:32 Total Bilirubin 1.8 H (0.15-1.2) mg/dL AST 15 (0-32) U/L ALT 13 (0-33) U/L Alkaline Phosphatase 60 (35-105) U/L Albumin 4.1 (3.5-5.2) g/dL Urine 11/18/23 Range/Units 20:32 Urine Color Colorless (Yellow) Urine Appearance Clear (CLEAR) Urine pH 8 H (5-7) Ur Specific [place] 1.010 (1.005-1.030) Urine Protein Neg (Negative) Urine Glucose (UA) Norm (Normal) Urine Ketones Negative (Negative) Urine Nitrate Negative (Negative) Urine Bilirubin Neg (Negative) Ur Leukocyte Esterase Negative (Negative) Coags 11/19/23 04:11 APTT 32.4 Cardiac Studies: No Data to Display
[2023-11-19] MEDS: sodium chloride 0.9% 1,000 ML 30 ML IV (11:12)
[2023-11-19] MEDS: scopolamine 1.5 Patch 1 PATCH TRANSDERMA (11:12)
[2023-11-19] MEDS: lidocaine-epi 1% 20 mL INJ INJECTION (13:03)
[2023-11-19] MEDS: BUPivacaine 0.25% INJ 10 mL INJECTION (13:03)
--- NOTE | 2023-11-19 13:33 | P.OP_ITS ---
Operative Report Date of procedure: November 19, 2023 Pre-op diagnosis: Acute appendicitis Post-op diagnosis: Same Post-op findings: inflamed appendix Procedure done: Laparoscopic appendectomy Specimens removed/disposition: appendix Surgeon: Rian Arias MD [employer] Installer: JADEN OR STaff Estimated blood loss: 5 Complications: none apparent Brief History: Is a 48-year-old female presenting with acute appendicitis, after discussion of all risk and benefits as documented my preop note we decided to proceed with laparoscopic appendectomy. Procedure: Patient was brought into the OR, she was placed in a supine position. General esthesia was given. The abdomen was prepped and draped in the usual sterile fashion. Timeout was conducted. The abdomen was accessed via 1.5 cm infraumbilical incision with an open technique, a Trocar Was Placed and Fixed to the Fascia with #0 Vicryl. Initial Pneumoperitoneum Was Achieved and Laparoscopy Showed No Evidence of Visceral Injury during Entry. Additional 5 Mm Trocars Were Placed under Direct Visualization in the Suprapubic and Left Lower Quadrant Position. The Appendix Was Identified in the Right Lower Quadrant. It Was Long and Appeared to Be Inflamed. I Used the LigaSure to Take down the Mesoappendix to the Base of the Appendix. After That I Proceeded to Transect the Base of the Appendix Using 45mm blue load Endo GORDON stapler. The appendix was then retrieved via the umbilical trocar site. This was done in an Endo Catch bag. Minimal oozing was noted from the staple line, I proceeded to apply two 5 mm clips at this level with complete control of the oozing. A Ray-Khushboo was introduced to the abdomen and minimal amount of purulent fluid was absorbed from the right paracolic gutter, the right it was immediately retrieved. I then proceeded to close the umbilical trocar site with 0 Vicryl using a suture passer under direct visualization. The suprapubic trocar was removed under direct visualization and the right lower quadrant trocar was subsequently used to evacuate the pneumoperitoneum and removed. The wounds were closed in layers #4- 0 Monocryl was used for the skin. Dermabond was applied. At the end the procedure all counts were correct, the patient tolerated well the procedure and was transferred to the PACU in stable condition.
[2023-11-19] MEDS: ondansetron 2 mg/ML SDV 2 mL 4 MG IVP ×2 (14:17→15:45)
--- NOTE | 2023-11-19 14:40 | ANE.PACU2 ---
Inpatient post-anesthesia follow up: Airway intact: Yes Vital signs: Temperature 97.8 F Pulse Rate 79 Respiratory Rate 16 Blood Pressure 107/72 Pulse Oximetry 96 Oxygen Delivery Me thod Room Air Oxygen Flow Rate 2 Fraction of Inspir ed Oxygen Hydration adequate: Yes Nausea and vomiting: No Pain level: 1 Mental status: Baseline
[2023-11-19] MEDS: oxyCODONE 5 mg IR Tab/Cap PO (17:34)
--- NOTE | 2023-11-19 18:00 | PC.NURSE ---
Patient is A&Ox3. Respirations even and non-labored on room air. Patient has voided and has been ambulating in the hallway with a steady gait. Reviewed patient discharge including follow up appointments and medications. Patient verbalized understanding and was wheel chaired to private.
== END 2023-11-19 18:00 | disposition home or self-care (01) ==
LOC: ER 21:43 → MEDSURG 23:30
PROVIDERS: Emergency Medicine; Admitting Provider Surgery; Emergency Provider Internal Medicine; PCP Physician Assistant; Visit Provider Surgery
PROC: 0DTJ4ZZ Resection of Appendix, Percutaneous Endoscopic Approach (ICD-10-PCS; CPT 44970; principal; 2023-11-19 12:00)
DX: K35.80 Unspecified acute appendicitis (principal); F17.290 Nicotine dependence, other tobacco product, uncomplicated
CPT/HCPCS: 44970; 36415; 74177; 80048; 80053; 81003; 81025; 83690; 85025; 85730; 88304; 96365; 96366; 96375; 99285; G0378; J1100; J1170; J1885; J2250; J2270; J2405; J2543; J2704; J2710; J3010; J3490; J7030; J7120; Q9967